=== PATIENT | male | born 1975 | race Caucasian/White ===

== ENCOUNTER → 2016-12-12 | Outpatient (CLI) | payer BC, OTHER ==
[~2016-12-12] VITALS: Ht 182.9 cm; Wt 93.0 kg
[~2016-12-12] MED LIST: IBUPROFEN 200200 M1 PO; LEXAPRO20 MG PO; NABUMETONE 750750 M1 PO
--- NOTE | ~2016-12-12 | HPC ---
[facility] [address] [place] [address] PAIN MANAGEMENT CONSULTATION Name: NANI TAYLOR Room #: REG CL MEdna.#: [id number] Admission: 12/12/16 Attend Phys: Markell Presley DO Discharge: Date of : 77 Report #: [id number] THIS REPORT FOR: //name// CC: Sloan Presley HISTORY OF PRESENT ILLNESS: The patient is a very pleasant 41-year-old gentleman seen in consultation at the request of Dr. Merida for evaluation of pain, neck, right shoulder and arm with consideration for cervical epidural injection. The patient notes symptoms began acutely in October without antecedent trauma and overuse; developed pain in the neck, right shoulder; radiating into the thumb and index finger with paresthesia and weakness. Tried chiropractic manipulation for 3-4 weeks, [id number] nonsteroidal anti-inflammatory medications, all with no relief. Notes pain is continuous, constant, burning, shooting, aching, sharp, stabbing and throbbing, rates it at 7-10 on VAS. Notes pain is exacerbated with cervical movement, nothing in particular seems to give him relief. REVIEW OF SYSTEMS: Complete review of systems attached to chart was gone over with the patient. He is , does not smoke or drink alcohol to excess. 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 Some chronic anxiety and depression for which he takes Lexapro 20 mg, otherwise he enjoyed remarkably good health. Works in insurance sales; he has not lost any work time secondary to pain. Pain impact score is 35/70. PHYSICAL EXAMINATION: GENERAL: Reveals a pleasant 6 feet 1 inch, 205 pounds gentleman in no acute distress at present. NEUROLOGIC: Cranial nerves 2-12 are grossly intact. HEENT: Pupils are equal and reactive to light and accommodation. Extraocular muscles are intact. There is no nystagmus or lateral gaze deviation. NEUROLOGIC: Positive Lhermitte's, radiation in the right hand, decreased right triceps strength, decreased right triceps deep tendon reflex, biceps and deltoid strength are symmetric. Brachioradialis and biceps reflexes are symmetric. Hand grasp is symmetric. Tinel's is negative. HEART: Regular and rhythmical without murmur. LUNGS: Clear to auscultation. EXTREMITIES: Rises from chair easily. Gait is tandem. Lower extremity strength is preserved. Straight leg raise is negative. Deep tendon reflexes are preserved. MRI disk was reviewed, the patient does have herniated disk at C6-C7 with significant compromise of the canal. Radiologist reads this as 0.8 cm AP diameter. Moderate large broad-based disk left of midline on the MRI. Symptoms [address] [address] PAIN MANAGEMENT CONSULTATION Name: NANI TAYLOR Room #: REG SHARONA Dodson#: [id number] Admission: 12/12/16 Attend Phys: Markell Presley DO Discharge: Date of : 77 Report #: [id number] are fairly classic for right C6 radiculopathy. There is also a hint of T2 signal change from C5-C7 indicative of myelomalacia. I discussed this with the patient at length today. ASSESSMENT: Symptomatic cervical radiculopathy. RECOMMENDATIONS: 1. We will start the patient on nabumetone 750 b.i.d. 2. Cervical epidural injection under fluoroscopy today. 3. Follow up in 2 weeks for reevaluation. Thank you for allowing me to participate in the patient's care. I will keep abreast of his progress. PROCEDURE: Cervical epidural injection under fluoroscopy. PROCEDURE NOTE: After written and informed consent was obtained including risk of dural puncture, spinal cord trauma, paralysis and increased pain, the patient was taken to the fluoroscopy suite and placed in the prone position, with appropriate abdominal bolstering, neck was flexed, palms under the thighs. Skin was prepped with ChloraPrep. Sterile draping was applied. Skin wheal with 1% Xylocaine was raised. A 22-gauge 3-1/2 inch epidural Tuohy needle was placed via a midline approach at the C7-T1 interspace, advanced under biplanar fluoroscopy using continuous loss of resistance. With appropriate loss of resistance at the expected depth on lateral view, the glass loss of resistance syringe was disconnected. A low volume extension tubing was connected to the needle and a 5 mL syringe. Negative aspiration for cerebrospinal fluid or blood was noted. A 1 mL of Omnipaque was injected which showed spread within the epidural space on biplanar fluoroscopy. This was followed with 80 mg of triamcinolone plus 1 mL of 1.5% preservative Xylocaine. Needle was withdrawn to the interspinous ligament, 0.5 mL of Xylocaine was used to flush the needle. The needle was then completely withdrawn. The area was cleansed. Band-Aid was applied. The patient was allowed to move off the procedure table and ambulated to the recovery room, monitored for an appropriate period of time, discharged in good and stable condition. <ELECTRONICALLY SIGNED> By: Markell Presley DO 12/13/16 0657 [id number] Markell Presley, DO /nt
[2016-12-12 13:26] VITALS: BP 114/75
== END | disposition home or self-care (01) ==
LOC: PAIN 07:09
DX: M54.12 Radiculopathy, cervical region (principal); F41.9 Anxiety disorder, unspecified; F32.9 Major depressive disorder, single episode, unspecified; Z79.899 Other long term (current) drug therapy; Z79.1 Long term (current) use of non-steroidal anti-inflammatories (NSAID); K51.90 Ulcerative colitis, unspecified, without complications

== ENCOUNTER → 2018-01-06 | Outpatient (CLI) | payer OTHER | LOC: CAT 09:09 | DX: Z13.6 Encounter for screening for cardiovascular disorders (principal); E78.00 Pure hypercholesterolemia, unspecified ==

== ENCOUNTER → 2018-01-21 | Outpatient (CLI) | payer BC, OTHER ==
[~2018-01-21] VITALS: Ht 185.4 cm; Wt 103.1 kg
[2018-01-21 09:48] VITALS: BP 127/90
== END | disposition home or self-care (01) ==
LOC: PAIN 07:09
DX: M54.12 Radiculopathy, cervical region (principal); Z79.899 Other long term (current) drug therapy

== ENCOUNTER → 2019-11-26 | Outpatient (CLI) | payer BC, OTHER ==
[~2019-11-26] VITALS: Ht 188 cm; Wt 105.9 kg
[~2019-11-26] MED LIST changes: +HYDROCODON-ACE1 EAC7 PO
[2019-11-26 08:17] VITALS: BP 113/83
--- NOTE | 2019-11-26 08:26 | NUR ---
Pain Clinic Assessment: 1. History of Osteoarthritis: History of Rheumatoid Arthritis: 2. Height: 6 ft. 2 in. 188.0 cm. Weight: 233.4 lb. oz. 105.870 kg. Patient's BMI: 30.0 3. Vital Signs: BP: 113/83 Pulse: 73 Resp: 16 Temp: 02 Sat: 97 ECG Mon: 4. Pain Intensity: 9 5. Fall Risk: Dizziness: N Needs help standing or walking: N Fallen in the last 3 months: N Fall risk comments: 6. Patient on Blood Thinner: None 7. History of Hypertension: N 8. Opioid Therapy greater than 6 weeks: N Opiate Contract Signed: 9. Risk Assessment Tool Provided: 1-LOW RISK 10. Functional Assessment Tool: 11. Recreational Drug Use: Never Drug Type: Tobacco Use: Never Smoker Tobacco Type: Amount or Packs/day: How Many Years: Alcohol Use: Yes Frequency: Quant:
--- NOTE | 2019-12-07 13:35 | HPC ---
[facility] [place] [address] PAIN MANAGEMENT CONSULTATION Name: NANI TAYLOR Room #: REG CLHowie Harris.#: [id number] Admission: 11/26/19 Attend Phys: Johnson Lyons MD Discharge: Date of : 77 Report #: [id number] THIS REPORT FOR: cc: Sloan Almanzar,Johnson Smith MD ~ CC: Sloan Lyons DATE OF SERVICE: 11/26/2019 CHIEF COMPLAINT: Return of neck pain. HISTORY: The patient is a 44-year-old gentleman who has been seen in the pain clinic in the past because of cervical radiculopathy. He has noticed a return of pain and discomfort involving his neck and arms. Pain is more problematic right shoulder and radiates down to the right arm. Pain started in about 2017. Pain is located in the right shoulder near the shoulder blade and involves the right forearm. Notes a flare of this pain over the last 2 weeks. He has had twinges of pain. Notes the pain is often times dull in character. It can be sharp. Rates his intensity is 9/10. Exacerbated when he is lying down. I am not sure that anything significantly improves it at this juncture. He has gleaned benefits from epidural steroid injection and has returned today for additional treatment. ALLERGIES: No known drug allergies. CURRENT MEDICATIONS: Lexapro 20 mg, total of 40 mg daily. PAIN CLINIC ASSESSMENT AND PQRS: 1. History of osteoarthritis. The patient has some arthritic changes in his neck. The patient is not being treated for rheumatoid arthritis. 2. Height 6 feet 2 inches, weight 233 pounds, BMI is 30. 3. Vital Signs: Blood pressure 113/83, pulse 73, respiratory rate 16, room air saturation 97%. 4. Pain intensity 9/10. 5. Fall history: The patient has not fallen in the last 3 months. 6. Blood thinner. The patient is not on a blood thinning medication. 7. Hypertension. The patient is not being treated for hypertension. 8. Opioids greater than 6 weeks. The patient receives medications from his primary. 9. Risk assessment tool, low for opioid use. 10. Functional assessment tool . 11. Recreational drug use. The patient denies. 12. Tobacco: The patient has never smoked. 13. Alcohol: The patient occasionally drinks alcoholic beverages. [facility] [address] [place] [address] PAIN MANAGEMENT CONSULTATION Name: NANI TAYLOR Room #: REG CLI [facility]#: [id number] Admission: 11/26/19 Attend Phys: Johnson Lyons MD Discharge: Date of : 77 Report #: [id number] PHYSICAL EXAMINATION: GENERAL: The patient is a well-developed, well-nourished white male. Appears his stated age. He is alert and oriented x 3. His affect is appropriate. Speech is fluent. HEENT: Normocephalic, atraumatic. Extraocular eye muscles intact. Sclerae nonicteric. Mucous membranes are moist. The patient has pain and discomfort in the right posterior scapular area. Also, has some pain that radiates down the right shoulder, arm and down into his fingers causing numbness and tingling. LUNGS: Clear to auscultation. HEART: Regular rate. ABDOMEN: Nontender. EXTREMITIES: Upper extremity muscle strength 5-/5 for the major muscle groups in the upper extremity. The patient has pain and discomfort that radiates down his shoulder blade down into his right arm and into his fingers on the right side. Cervical radiculopathy exacerbation. IMPRESSION: 1. Return of cervical radiculopathy, which improved by 90% after the last epidural steroid injection. 2. Colon problems with history of ulcerative proctitis. 3. Emotional problems. 4. Depression. 5. Anxiety. RECOMMENDATIONS: We discussed treatment options with the patient. Risks and benefits of an epidural steroid injection were discussed. Possible complications of the procedure, which could include but are not limited to infection, worsening of pain, no improvement in pain, nerve damage, bleeding. The patient also was advised about problems with COVID-19. Steroid injections can decrease the immune response. At this juncture, the patient is aware and would like to pursue an injection. PROCEDURE NOTE: The patient was taken to the procedure area. He was then assisted in getting on the examination table. His back was sterilely prepped with a Betadine solution. In the cervical area near C7-T1, 0.25% bupivacaine was infiltrated after this area had been sterilely prepped with a Betadine solution and allowed to dry. A 25-gauge needle was then used to gain access to the epidural space. Fluoroscopy using anterior, posterior as well as lateral viewing were implemented. After appropriate placement, a total of 120 mg triamcinolone was injected. The patient tolerated the procedure well. He remained in the pain clinic for an appropriate amount of time. He will follow up in the future as needed. We would like to thank you for letting us participate in his care. We hope he continues to improve. [address] [address] PAIN MANAGEMENT CONSULTATION Name: NANI TAYLOR Room #: REG SHARONA Dodson#: [id number] Admission: 11/26/19 Attend Phys: Johnson Lyons MD Discharge: Date of : 77 Report #: [id number] Total of 20 seconds fluoroscopy time was used. The patient's pain decreased from 9 down to a 2 at the time of discharge. <ELECTRONICALLY SIGNED> By: Johnson Lyons MD 12/07/19 1335 [id number] Johnson Lyons MD /nt
== END | disposition home or self-care (01) ==
LOC: PAIN 06:50
PROVIDERS: ATTEND Anesthesiology Pain Medicine
DX: M54.12 Radiculopathy, cervical region (principal); G89.29 Other chronic pain; F32.9 Major depressive disorder, single episode, unspecified; F41.9 Anxiety disorder, unspecified; Z98.890 Other specified postprocedural states; Z79.899 Other long term (current) drug therapy; Z87.19 Personal history of other diseases of the digestive system; Z79.891 Long term (current) use of opiate analgesic

== ENCOUNTER → 2019-12-17 | Outpatient (CLI) | payer BC, OTHER ==
[~2019-12-17] VITALS: Ht 188 cm; Wt 103.4 kg
[~2019-12-17] MED LIST changes: +LYRICA 50 MG50 MG PO; +MEDROLDOSEPACK PO; +METHADONE HCL 110 M1 PO; +METHADONE HCL5 MG PO; +NEURONTIN 300M300 M2 PO; +NEURONTIN300 MG PO
[2019-12-17 09:37] VITALS: BP 126/90
--- NOTE | 2019-12-17 09:42 | NUR ---
Pain Clinic Assessment: 1. History of Osteoarthritis: NONE History of Rheumatoid Arthritis: NONE 2. Height: 6 ft. 2 in. 188.0 cm. Weight: 228.0 lb. oz. 103.420 kg. Patient's BMI: 29.3 3. Vital Signs: BP: 126/90 Pulse: 92 Resp: 14 Temp: 02 Sat: 96 ECG Mon: 4. Pain Intensity: 10 5. Fall Risk: Dizziness: N Needs help standing or walking: N Fallen in the last 3 months: N Fall risk comments: 6. Patient on Blood Thinner: None 7. History of Hypertension: N 8. Opioid Therapy greater than 6 weeks: N Opiate Contract Signed: 9. Risk Assessment Tool Provided: 1-LOW RISK 10. Functional Assessment Tool: 11. Recreational Drug Use: Never Drug Type: Tobacco Use: Never Smoker Tobacco Type: Amount or Packs/day: How Many Years: Alcohol Use: Yes Frequency: Weekly Quant:
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
== END ==
LOC: PAIN 06:59
PROVIDERS: ATTEND Anesthesiology Pain Medicine
DX: M54.12 Radiculopathy, cervical region (principal); M25.511 Pain in right shoulder; R20.0 Anesthesia of skin; F41.8 Other specified anxiety disorders; F98.9 Unspecified behavioral and emotional disorders with onset usually occurring in childhood and adolescence; Z87.19 Personal history of other diseases of the digestive system; Z79.899 Other long term (current) drug therapy

== ENCOUNTER → 2019-12-29 | Outpatient (CLI) | payer BC, OTHER ==
[~2019-12-29] VITALS: Ht 188 cm; Wt 105.5 kg
[2019-12-29 10:01] VITALS: BP 108/77
--- NOTE | 2019-12-29 10:08 | NUR ---
Pain Clinic Assessment: 1. History of Osteoarthritis: NONE History of Rheumatoid Arthritis: NONE 2. Height: 6 ft. 2 in. 188.0 cm. Weight: 232.6 lb. oz. 105.507 kg. Patient's BMI: 29.9 3. Vital Signs: BP: 108/77 Pulse: 80 Resp: 16 Temp: 02 Sat: 98 ECG Mon: 4. Pain Intensity: 10 5. Fall Risk: Dizziness: Y Needs help standing or walking: N Fallen in the last 3 months: N Fall risk comments: 6. Patient on Blood Thinner: None 7. History of Hypertension: N 8. Opioid Therapy greater than 6 weeks: N Opiate Contract Signed: 9. Risk Assessment Tool Provided: 1-LOW RISK 10. Functional Assessment Tool: 11. Recreational Drug Use: Never Drug Type: Tobacco Use: Never Smoker Tobacco Type: Amount or Packs/day: How Many Years: Alcohol Use: Yes Frequency: Quant:
--- NOTE | 2019-12-31 08:11 | HPC ---
[facility] [address] [place] [address] PAIN MANAGEMENT CONSULTATION Name: NANI TAYLOR Room #: REG SHARONA West#: [id number] Admission: 12/29/19 Attend Phys: Johnson Lyons MD Discharge: Date of : 77 Report #: [id number] CC: Sloan Lyons DATE OF SERVICE: 12/29/2019 CHIEF COMPLAINT: "Pain in my right arm with numbness in my fingers. HISTORY: The patient is a 44-year-old gentleman who has been seen in the pain clinic because of cervical radiculopathy. He has undergone 2 previous cervical epidural steroid injections recently. His pain continues to be quite problematic. He returned to the pain clinic on 12/17/2019. He was having severe pain and discomfort, which is radiating down into his right arm with numbness. Pain was quite severe. It involves his right arm down into his posterior shoulder blades and forearm with numbness in his fingers. Pain was quite severe. He underwent a cervical MRI. He will follow up in the near future with the neurosurgeon. He has returned today with the hopes of undergoing a third cervical epidural steroid injection. He rates his pain as very severe and 10/10 at this juncture. ALLERGIES: No known drug allergies. CURRENT MEDICATIONS: Lexapro 20 mg, total of 40 mg; the patient tried methadone up to 10 mg t.i.d. He did not feel that this was significantly helpful with his pain. PAIN CLINIC ASSESSMENT AND PQRS: 1. The patient has a history of osteoarthritis. He has had some arthritic changes in his neck. He is not being treated for rheumatoid arthritis. 2. Height 6 feet 2 inches, weight 232 pounds, BMI is 29.9. 3. Vital signs: Blood pressure 108/77, pulse 80, respiratory rate 16, room air saturation 98%. 4. Pain intensity 10/10. 5. Fall history: The patient has not fallen in the last 3 months. 6. Blood thinner. The patient is not on a blood thinning medication. 7. Hypertension. The patient is not being treated for hypertension. 8. Opioids greater than 6 weeks. The patient receives medication from the pain clinic. 9. Risk assessment tool, low for opioid use. 10. Functional assessment tool /. 11. Recreational drug use. The patient denies. 12. Tobacco: The patient has never smoked. 13. Alcohol: The patient occasionally drinks alcoholic beverages on the weekend. PHYSICAL EXAMINATION: GENERAL: The patient is a well-developed, well-nourished white male. Appears his stated age. He is alert and oriented x 3. His affect is appropriate. Speech is fluent. HEENT: Normocephalic, atraumatic. Extraocular eye muscles intact. The patient is wearing a facial covering. The patient is complaining of pain and discomfort involving the right shoulder with pain that is radiating down the posterior portion of his back near the scapula and down into the anterior portion of his arm, forearm with numbness and tingling down into his fingers. LUNGS: Clear to auscultation. HEART: Regular rate. ABDOMEN: Nontender. MUSCULOSKELETAL: Upper extremity muscle strength judged to be 5-/5 for the major muscle groups on the left side. Right side, the patient has strength 4-/5. He has pain that is radiating down into his fingers, right shoulder blade. IMPRESSION: 1. Cervical radiculopathy. 2. Colon problems. 3. History of ulcerative proctitis, emotional problems. 4. Depression. 5. Anxiety. LABORATORY DATA: 1. MRI of the cervical spine dated 12/27/2019, C2-C3 spinal canal and right neural foramen are adequate. Facet degenerative changes contributes to mild posterior narrowing of the left neural foramen. 2. C3-C4, there is a very shallow posterior central protrusion. Central canal is adequate about 11 mm. Neural foramen are overall adequate. There is facet degenerative changes bilaterally. 3. C4-C5, there is facet degenerative changes bilaterally. Spinal canal and right neural foramen are adequate. Likely mild posterior narrowing of the left neural foramen by facet. 4. C5-C6, there is a shallow posterior protrusion slightly more eccentric to the right lateral recess. Central canal is minimally narrowed about 9 mm. There is bilateral facet hypertrophy changes. Neural foramina are not significantly narrowed. 5. C6-C7, there is minimal bulge/broad protrusion. There is mild buckling of the ligamentum flavum. Central canal is narrowed at about 8 mm to 9 mm. Neural foramen were not significantly narrowed. 6. C7-T1, spinal canal and neural foramen are adequate. IMPRESSION: There is a mild spinal stenosis about 8-9 mm at C6-C7 and to a somewhat lesser degree C5-C6. There is urgc-xj-qxuyukzf degenerative disk disease at C6-C7 and to a lesser degree at C5-C6. There is mild cervical neural foraminal compromise. There is segmental thinning of the cord at the C6 level with associated mild T2 and STIR hyperintense signal likely sequela of myelomalacia. RECOMMENDATIONS: We discussed treatment options with the patient. Risks and benefits of a cervical epidural steroid injection were again discussed. Possible complications of the procedure were reviewed. They include but are not limited to infection, worsening of pain, no improvement in pain, nerve damage, bleeding, and the patient elects to proceed. PROCEDURE NOTE: The patient was taken to the procedure area. He was then assisted in getting on the examination table. A pillow was placed under his shoulders to improve positioning. Fluoroscopy using anterior, posterior as well as lateral viewing were implemented. A 17-gauge Tuohy with loss of resistance technique was used to gain access at the C7-T1 area after it had been sterilely prepared and anesthetized with 0.25% bupivacaine using a 25-gauge needle. The patient tolerated the procedure well. A total of 120 mg triamcinolone was injected. A 19 seconds fluoroscopy time was used. The patient remained in the pain clinic for an appropriate amount of time. He will follow up in the future as needed. We would like to thank you for letting us participate in his care. We hope he continues to improve. <ELECTRONICALLY SIGNED> By: Johnson Lyons MD 12/31/19 0811 [id number] 1440 Johnson Lyons MD /rachel
== END | disposition home or self-care (01) ==
LOC: PAIN 12-22 09:00
PROVIDERS: ATTEND Anesthesiology Pain Medicine
DX: M50.123 Cervical disc disorder at C6-C7 level with radiculopathy (principal); M48.02 Spinal stenosis, cervical region; F32.9 Major depressive disorder, single episode, unspecified; F41.9 Anxiety disorder, unspecified; Z98.890 Other specified postprocedural states; Z79.899 Other long term (current) drug therapy; Z87.19 Personal history of other diseases of the digestive system; Z88.8 Allergy status to other drugs, medicaments and biological substances